=== PATIENT | male | born 1975 ===

== ENCOUNTER 2022-05-12 18:39 | Inpatient (IN) ==
[2022-05-12] MEDS ORDERED: *HR* Midazolam HCl 5 MG/5 ML VIAL IVP ONE ×2 (21:46)
[2022-05-12] MEDS ORDERED: Naloxone 0.4 MG/ML INJ IVP PRN (21:48)
[2022-05-12] MEDS ORDERED: Artificial Tears SOLN 15 ML BOTTLE BOTH EYES PRN (21:56)
[2022-05-12 22:09] LABS: ABG Base Excess -7 mEq/L (-2 to 3); ABG HCO3 20 mEq/L (21-27); ABG Oxygen Saturation 100 % (95-98); ABG PCO2 42 mmHg (35-45); ABG PH 7.28 pH Units (7.32-7.45); ABG PO2 198 mmHg (85-104); ABG TCO2 21 mEq/L (20-26); Blood Gas VT 500 cc
[2022-05-12] MEDS: Dexmedetomidine HCl 400 MCG/100 ML MLS IVC SCH (22:20)
[2022-05-12 22:21] LABS: Red Cell Distribution Width 17.6 % (11.5-14.5)
[2022-05-12] MEDS: FentaNYL (PF) 1,000 MCG/100 ML IV.SOLN IVC SCH (22:21)
[2022-05-12] MEDS: Artificial Tears SOLN 15 ML BOTTLE BOTH EYES SCH (22:21)
[2022-05-12 22:23] LABS: Basophils % 0.3 %; Eosinophils % 0.5 %; Hemoglobin 9.9 g/dL (12.9-16.9); Immature Granulocytes % 0.3 % (0-4); Immature Platelets 5.3 % (1.1-6.1); Lymphocytes # 1.1 K/mcL (0.6-4.6); Lymphocytes % 19.1 %; Mean Corpuscular HGB Conc 31.9 g/dL (31.6-35.5); Mean Corpuscular Volume 109.5 fL (83.0-100.0); Mean Platelet Volume 10.5 fL (9.4-12.4); Monocytes # 0.8 K/mcL (0.0-1.3); Monocytes % 14.4 %; Neutrophils # 3.8 K/mcL (1.6-8.9); Red Blood Count 2.83 M/mcL (4.19-5.50); Segmented Neutrophils % 65.4 %; White Blood Count 5.8 K/mcL (4.3-11.1)
[2022-05-12 22:29] LABS: INR 1.8; Prothrombin Time 19.5 Seconds (9.4-12.1)
[2022-05-12 22:44] LABS: Platelet Count 27 K/mcL (140-400); Platelet Estimate Decreased (Normal)
[2022-05-12 22:46] LABS: Alanine Aminotransferase 29 Units/L (7-52); Albumin 2.4 g/dL (3.5-5.7); Albumin/Globulin Ratio 0.8 (1.1-2.2); Alkaline Phosphatase 181 Units/L (34-104); Aspartate Amino Transferase 62 Units/L (13-39); BUN/Creatinine Ratio 8 (6-26); Bilirubin,Direct 1.9 mg/dL (0.0-0.2); Bilirubin,Total 3.9 mg/dL (0.3-1.0); Blood Urea Nitrogen 12 mg/dL (6-20); Calcium 6.9 mg/dL (8.6-10.3); Carbon Dioxide 19 mEq/L (23-29); Chloride 118 mEq/L (98-107); Globulin 2.9 g/dL (2.4-3.5); Glucose 134 mg/dL (70-105); Lactate Dehydrogenase 445 Units/L (140-271); Osmolality,Calculated 308 (280-300); Potassium 3.5 mEq/L (3.5-5.1); Sodium 148 mEq/L (136-145); Total Protein 5.3 g/dL (6.4-8.9); eGFR For African Americans 56 (> 60); eGFR For Non-African Americans 46 (> 60)
[2022-05-12 22:49] LABS: C-Reactive Protein < 5 mg/L (Less than 10)
[2022-05-12] MEDS: Thiamine (B-1) 200 MG in 0.9 % Sodium Chloride 50 ML IVPB SCH (23:07)
[2022-05-12 23:11] LABS: Adenovirus Not Detected (Not Detect); Bordetella Pertussis Not Detected (Not Detect); Chlamydophila pneumoniae Not Detected (Not Detect); Coronavirus 229E Not Detected (Not Detect); Coronavirus HKU1 Not Detected (Not Detect); Coronavirus NL63 Not Detected (Not Detect); Coronavirus OC43 Not Detected (Not Detect); Human Metapneumovirus Not Detected (Not Detect); Human Rhinovirus/Enterovirus Not Detected (Not Detect); Influenza A Subtype 2009 H1 Not Detected (Not Detect); Influenza B Not Detected (Not Detect); Mycoplasma pneumoniae Not Detected (Not Detect); Parainfluenza Virus 1 Not Detected (Not Detect); Parainfluenza Virus 2 Not Detected (Not Detect); Parainfluenza Virus 3 Not Detected (Not Detect); Parainfluenza Virus 4 Not Detected (Not Detect); Respiratory Syncytial Virus Not Detected (Not Detect)
[2022-05-12 23:12] LABS: SARS-CoV-2 DETECTED (Not Detect)
[2022-05-12] MEDS ORDERED: Perflutren Lipid Microsphere 1.3 ML in 0.9 % Sodium Chloride 8.7 ML IVP PRN (23:23)
[2022-05-12] MEDS: Piperacillin/Tazobactam 3.375 GM in 0.9 % Sodium Chloride Mini Bag 100 ML IVPB SCH (23:41)
[2022-05-12 23:51] LABS: ABG Base Excess -8 mEq/L (-2 to 3); ABG HCO3 19 mEq/L (21-27); ABG Oxygen Saturation 99 % (95-98); ABG PCO2 43 mmHg (35-45); ABG PH 7.26 pH Units (7.32-7.45); ABG PO2 172 mmHg (85-104); ABG TCO2 20 mEq/L (20-26); Blood Gas VT 450 cc
[2022-05-12] MEDS ORDERED: 0.9 % Sodium Chloride 250 ML ONE (23:59)
[2022-05-12] MEDS ORDERED: *HR* Norepinephrine 4 MG/4 ML VIAL IVC ONE (23:59)
[2022-05-13] MEDS: Norepinephrine 4 MG/254 ML IV.SOLN IVC SCH ×6 (00:22→17:59)
[2022-05-13] MEDS: Dexamethasone Sodium Phos/PF 10 MG/ML VIAL IVP SCH ×2 (01:07→07:44)
[2022-05-13] MEDS: Midazolam HCl 50 MG/50 ML IV.SOLN IVC SCH ×2 (01:09→22:43)
[2022-05-13] MEDS: Artificial Tears SOLN 15 ML BOTTLE BOTH EYES SCH ×6 (03:23→23:42)
[2022-05-13] MEDS: Dexmedetomidine HCl 400 MCG/100 ML MLS IVC SCH ×5 (03:29→23:34)
[2022-05-13] MEDS: FentaNYL (PF) 1,000 MCG/100 ML IV.SOLN IVC SCH ×2 (03:29→20:38)
[2022-05-13 04:05] LABS: ABG Base Excess -7 mEq/L (-2 to 3); ABG HCO3 20 mEq/L (21-27); ABG Oxygen Saturation 99 % (95-98); ABG PCO2 45 mmHg (35-45); ABG PH 7.26 pH Units (7.32-7.45); ABG PO2 139 mmHg (85-104); ABG TCO2 21 mEq/L (20-26); Blood Gas VT 450 cc
[2022-05-13 04:30] LABS: Hematocrit 32.2 % (37.5-50.1); Hemoglobin 10.4 g/dL (12.9-16.9); Immature Platelets 7.2 % (1.1-6.1); Mean Corpuscular HGB Conc 32.3 g/dL (31.6-35.5); Mean Corpuscular Hemoglobin 35.4 pg (28.0-33.3); Mean Corpuscular Volume 109.5 fL (83.0-100.0); Mean Platelet Volume 12.8 fL (9.4-12.4); Red Blood Count 2.94 M/mcL (4.19-5.50); Red Cell Distribution Width 17.3 % (11.5-14.5); White Blood Count 7.5 K/mcL (4.3-11.1)
[2022-05-13 04:49] LABS: Alanine Aminotransferase 33 Units/L (7-52); Albumin 2.6 g/dL (3.5-5.7); Albumin/Globulin Ratio 0.8 (1.1-2.2); Alkaline Phosphatase 187 Units/L (34-104); Amylase 94 Units/L (29-103); Aspartate Amino Transferase 69 Units/L (13-39); BUN/Creatinine Ratio 11 (6-26); Bilirubin,Total 4.9 mg/dL (0.3-1.0); Blood Urea Nitrogen 14 mg/dL (6-20); Calcium 7.8 mg/dL (8.6-10.3); Carbon Dioxide 18 mEq/L (23-29); Chloride 116 mEq/L (98-107); Globulin 3.4 g/dL (2.4-3.5); Glucose 142 mg/dL (70-105); Lipase 43 Units/L (11-82); Osmolality,Calculated 309 (280-300); Potassium 3.7 mEq/L (3.5-5.1); Sodium 148 mEq/L (136-145); eGFR For African Americans > 60 (> 60); eGFR For Non-African Americans > 60 (> 60)
[2022-05-13] MEDS: Thiamine (B-1) 200 MG in 0.9 % Sodium Chloride 50 ML IVPB SCH (05:09)
[2022-05-13] MEDS: Lactulose Oral Soln 20 GM/30 ML UDC PO SCH ×2 (07:43→20:47)
[2022-05-13] MEDS: Chlorhexidine Rinse 15 ML MOUTHWASH MM SCH ×2 (07:43→20:39)
[2022-05-13] MEDS: Pantoprazole 40 MG VIAL IVP SCH (07:43)
[2022-05-13] MEDS: Piperacillin/Tazobactam 3.375 GM in 0.9 % Sodium Chloride Mini Bag 100 ML IVPB SCH ×3 (07:44→23:31)
[2022-05-13 08:05] LABS: Phosphorous 6.1 mg/dL (2.7-4.5)
[2022-05-13 09:40] LABS: Hematocrit 29.5 % (37.5-50.1)
[2022-05-13 09:42] LABS: Hemoglobin 9.6 g/dL (12.9-16.9); Mean Corpuscular HGB Conc 32.5 g/dL (31.6-35.5); Mean Corpuscular Hemoglobin 35.2 pg (28.0-33.3); Mean Corpuscular Volume 108.1 fL (83.0-100.0); Mean Platelet Volume 10.9 fL (9.4-12.4); Red Blood Count 2.73 M/mcL (4.19-5.50); Red Cell Distribution Width 17.3 % (11.5-14.5); White Blood Count 8.4 K/mcL (4.3-11.1)
[2022-05-13 09:44] LABS: VBG Ionized Calcium 0.97 mmol/L (1.15-1.35)
[2022-05-13 09:47] LABS: Platelet Count 27 K/mcL (140-400)
[2022-05-13] MEDS: Calcium Gluconate 1gm/50mL 1 GM/50 ML BAG IVPB PRN ×2 (09:55→15:55)
[2022-05-13 09:56] LABS: BUN/Creatinine Ratio 12 (6-26); Blood Urea Nitrogen 16 mg/dL (6-20); Calcium 7.4 mg/dL (8.6-10.3); Carbon Dioxide 20 mEq/L (23-29); Chloride 115 mEq/L (98-107); Glucose 137 mg/dL (70-105); Osmolality,Calculated 307 (280-300); Potassium 4.1 mEq/L (3.5-5.1); Sodium 147 mEq/L (136-145); eGFR For African Americans > 60 (> 60); eGFR For Non-African Americans 59 (> 60)
[2022-05-13 13:40] LABS: Basophils # 0.2 K/mcL (0.0-0.2); Lymphocytes # 0.3 K/mcL (0.6-4.6); Monocytes # 0.2 K/mcL (0.0-1.3); Neutrophils # 7.7 K/mcL (1.6-8.9); Platelet Estimate Marked Decrease (Normal)
[2022-05-13 13:41] LABS: Anisocytosis 1+ (Not Present); Poikilocytosis 1+ (Not Present); Polychromasia 1+ (Not Present)
[2022-05-13 13:41] LABS: Hematocrit 30.1 % (37.5-50.1); Hemoglobin 9.7 g/dL (12.9-16.9); Immature Platelets 6.4 % (1.1-6.1); Mean Corpuscular HGB Conc 32.2 g/dL (31.6-35.5); Mean Corpuscular Hemoglobin 34.6 pg (28.0-33.3); Mean Corpuscular Volume 107.5 fL (83.0-100.0); Mean Platelet Volume 12.1 fL (9.4-12.4); Red Cell Distribution Width 17.6 % (11.5-14.5); White Blood Count 8.2 K/mcL (4.3-11.1)
[2022-05-13 13:44] LABS: Platelet Count 27 K/mcL (140-400)
[2022-05-13] MEDS: Acetaminophen 325 MG TABLET PO PRN ×2 (15:39→22:17)
[2022-05-13 15:40] LABS: Basophils # 0.2 K/mcL (0.0-0.2); Lymphocytes # 0.2 K/mcL (0.6-4.6); Neutrophils # 7.9 K/mcL (1.6-8.9)
[2022-05-13 15:41] LABS: Anisocytosis 1+ (Not Present); Platelet Estimate Marked Decrease (Normal); Polychromasia 1+ (Not Present)
[2022-05-13 15:48] LABS: VBG Ionized Calcium 1.01 mmol/L (1.15-1.35)
[2022-05-13 16:01] LABS: BUN/Creatinine Ratio 13 (6-26); Blood Urea Nitrogen 19 mg/dL (6-20); Calcium 7.4 mg/dL (8.6-10.3); Carbon Dioxide 19 mEq/L (23-29); Chloride 116 mEq/L (98-107); Glucose 159 mg/dL (70-105); Magnesium 1.5 mg/dL (1.6-2.6); Osmolality,Calculated 310 (280-300); Potassium 4.1 mEq/L (3.5-5.1); Sodium 147 mEq/L (136-145); eGFR For African Americans > 60 (> 60); eGFR For Non-African Americans 53 (> 60)
[2022-05-13 16:03] LABS: Hemoglobin 9.7 g/dL (12.9-16.9); Red Blood Count 2.77 M/mcL (4.19-5.50)
[2022-05-13 16:05] LABS: Hematocrit 30.2 % (37.5-50.1); Immature Platelets 5.9 % (1.1-6.1); Mean Corpuscular HGB Conc 32.1 g/dL (31.6-35.5); Red Cell Distribution Width 17.7 % (11.5-14.5); White Blood Count 7.2 K/mcL (4.3-11.1)
[2022-05-13 16:09] LABS: Platelet Count 21 K/mcL (140-400)
[2022-05-13 17:00] LABS: Lymphocytes # 0.6 K/mcL (0.6-4.6); Monocytes # 0.1 K/mcL (0.0-1.3); Neutrophils # 6.5 K/mcL (1.6-8.9)
[2022-05-13 17:01] LABS: Platelet Estimate Decreased (Normal)
[2022-05-13] MEDS ORDERED: *HR* Midazolam HCl 5 MG/5 ML VIAL IVP ONE (20:53)
[2022-05-14 00:16] LABS: BUN/Creatinine Ratio 20 (6-26); Blood Urea Nitrogen 25 mg/dL (6-20); Calcium 7.4 mg/dL (8.6-10.3); Carbon Dioxide 20 mEq/L (23-29); Chloride 114 mEq/L (98-107); Glucose 241 mg/dL (70-105); Osmolality,Calculated 310 (280-300); Potassium 4.2 mEq/L (3.5-5.1); Sodium 144 mEq/L (136-145); eGFR For African Americans > 60 (> 60); eGFR For Non-African Americans > 60 (> 60)
[2022-05-14] MEDS: Norepinephrine 4 MG/254 ML IV.SOLN IVC SCH ×5 (00:28→21:01)
[2022-05-14] MEDS: FentaNYL (PF) 1,000 MCG/100 ML IV.SOLN IVC SCH ×5 (02:40→21:00)
[2022-05-14] MEDS: Dexmedetomidine HCl 400 MCG/100 ML MLS IVC SCH ×6 (03:00→22:13)
[2022-05-14 04:15] LABS: ABG Base Excess -3 mEq/L (-2 to 3); ABG HCO3 25 mEq/L (21-27); ABG Oxygen Saturation 99 % (95-98); ABG PCO2 52 mmHg (35-45); ABG PH 7.28 pH Units (7.32-7.45); ABG PO2 170 mmHg (85-104); ABG TCO2 26 mEq/L (20-26); Blood Gas VT 450 cc
[2022-05-14] MEDS: Artificial Tears SOLN 15 ML BOTTLE BOTH EYES SCH ×5 (06:55→20:03)
[2022-05-14] MEDS: Lactulose Oral Soln 20 GM/30 ML UDC PO SCH ×3 (07:48→17:02)
[2022-05-14] MEDS: Chlorhexidine Rinse 15 ML MOUTHWASH MM SCH ×2 (07:49→20:35)
[2022-05-14] MEDS: Dexamethasone Sodium Phos/PF 10 MG/ML VIAL IVP SCH (07:50)
[2022-05-14] MEDS: Pantoprazole 40 MG VIAL IVP SCH (07:50)
[2022-05-14] MEDS: Piperacillin/Tazobactam 3.375 GM in 0.9 % Sodium Chloride Mini Bag 100 ML IVPB SCH ×2 (07:50→16:11)
[2022-05-14] MEDS ORDERED: *HR* Midazolam HCl 5 MG/5 ML VIAL IVP ONE ×2 (08:02→08:04)
[2022-05-14 08:37] LABS: Hemoglobin 10.3 g/dL (12.9-16.9); Nucleated Red Blood Cells 0.1 /100 WBC (0)
[2022-05-14 08:38] LABS: Hematocrit 33.9 % (37.5-50.1); Immature Platelets 13.4 % (1.1-6.1); Mean Corpuscular HGB Conc 30.4 g/dL (31.6-35.5); Mean Corpuscular Hemoglobin 35.5 pg (28.0-33.3); Mean Corpuscular Volume 116.9 fL (83.0-100.0); Red Cell Distribution Width 17.1 % (11.5-14.5); White Blood Count 13.9 K/mcL (4.3-11.1)
[2022-05-14 08:47] LABS: Platelet Count 25 K/mcL (140-400)
[2022-05-14 08:55] LABS: BUN/Creatinine Ratio 23 (6-26); Blood Urea Nitrogen 32 mg/dL (6-20); Calcium 7.3 mg/dL (8.6-10.3); Carbon Dioxide 19 mEq/L (23-29); Chloride 111 mEq/L (98-107); Glucose 289 mg/dL (70-105); Magnesium 1.9 mg/dL (1.6-2.6); Osmolality,Calculated 313 (280-300); Potassium 3.8 mEq/L (3.5-5.1); Sodium 143 mEq/L (136-145); eGFR For African Americans > 60 (> 60); eGFR For Non-African Americans 54 (> 60)
[2022-05-14] MEDS: Thiamine (B-1) 200 MG in 0.9 % Sodium Chloride 50 ML IVPB SCH (09:20)
[2022-05-14 09:39] LABS: Lymphocytes # 2.9 K/mcL (0.6-4.6); Monocytes # 0.3 K/mcL (0.0-1.3); Neutrophils # 10.4 K/mcL (1.6-8.9); Toxic Granulation Present (Not Present)
[2022-05-14 09:41] LABS: Anisocytosis 1+ (Not Present); Platelet Estimate Marked Decrease (Normal)
[2022-05-14] MEDS ORDERED: *HR* Dextrose 50 % in Water (Syg) 50 ML SYRINGE IVP PRN (11:00)
[2022-05-14] MEDS ORDERED: Dextrose Gel 15 GM/37.5 ML TUBE PO PRN ×2 (11:00)
[2022-05-14] MEDS ORDERED: D5% in Water 1,000 ML IVC PRN (11:00)
[2022-05-14] MEDS: Insulin LISPRO 300 UNITS/3 ML VIAL SUBQ SCH ×3 (12:06→20:35)
[2022-05-14 12:26] LABS: Prothrombin Time 22.1 Seconds (9.4-12.1)
[2022-05-14] MEDS ORDERED: Ringers Solution, Lactated 500 ML IVC ONE (16:08)
[2022-05-14] MEDS ORDERED: Ringers Solution, Lactated 500 ML ONE (16:13)
[2022-05-14] MEDS: Acetaminophen 325 MG TABLET PO PRN (16:14)
[2022-05-14] MEDS: Ringers Solution, Lactated 1,000 ML IVC SCH (17:01)
[2022-05-14] MEDS: Midazolam HCl 50 MG/50 ML IV.SOLN IVC SCH (23:41)
[2022-05-15] MEDS: Piperacillin/Tazobactam 3.375 GM in 0.9 % Sodium Chloride Mini Bag 100 ML IVPB SCH ×3 (00:17→16:04)
[2022-05-15] MEDS: Ringers Solution, Lactated 1,000 ML IVC SCH ×2 (00:19→09:24)
[2022-05-15] MEDS: Insulin LISPRO 300 UNITS/3 ML VIAL SUBQ SCH ×6 (00:21→20:51)
[2022-05-15] MEDS: Lactulose Oral Soln 20 GM/30 ML UDC PO SCH ×4 (00:29→17:58)
[2022-05-15] MEDS: Artificial Tears SOLN 15 ML BOTTLE BOTH EYES SCH ×6 (00:30→20:21)
[2022-05-15] MEDS: Norepinephrine 4 MG/254 ML IV.SOLN IVC SCH ×3 (02:06→20:51)
[2022-05-15] MEDS: FentaNYL (PF) 1,000 MCG/100 ML IV.SOLN IVC SCH ×5 (02:07→21:30)
[2022-05-15] MEDS: Dexmedetomidine HCl 400 MCG/100 ML MLS IVC SCH ×6 (02:25→20:22)
[2022-05-15 04:30] LABS: ABG Base Excess -2 mEq/L (-2 to 3); ABG HCO3 24 mEq/L (21-27); ABG Oxygen Saturation 94 % (95-98); ABG PCO2 45 mmHg (35-45); ABG PH 7.32 pH Units (7.32-7.45); ABG PO2 74 mmHg (85-104); ABG TCO2 25 mEq/L (20-26); Blood Gas VT 450 cc
[2022-05-15 05:26] LABS: Red Blood Count 2.61 M/mcL (4.19-5.50); Red Cell Distribution Width 17.1 % (11.5-14.5)
[2022-05-15 05:28] LABS: Hematocrit 29.5 % (37.5-50.1); Hemoglobin 9.2 g/dL (12.9-16.9); Immature Platelets 10.3 % (1.1-6.1); Mean Corpuscular HGB Conc 31.2 g/dL (31.6-35.5); Mean Corpuscular Hemoglobin 35.2 pg (28.0-33.3); Mean Platelet Volume 10.7 fL (9.4-12.4); Nucleated Red Blood Cells 0.3 /100 WBC (0); White Blood Count 14.4 K/mcL (4.3-11.1)
[2022-05-15 05:31] LABS: Platelet Count 24 K/mcL (140-400)
[2022-05-15 06:26] LABS: Lymphocytes # 5.2 K/mcL (0.6-4.6); Monocytes # 0.3 K/mcL (0.0-1.3); Neutrophils # 8.9 K/mcL (1.6-8.9); Platelet Estimate Decreased (Normal)
[2022-05-15 06:46] LABS: BUN/Creatinine Ratio 30 (6-26); Blood Urea Nitrogen 40 mg/dL (6-20); Calcium 6.4 mg/dL (8.6-10.3); Carbon Dioxide 21 mEq/L (23-29); Chloride 106 mEq/L (98-107); Glucose 452 mg/dL (70-105); Osmolality,Calculated 303 (280-300); Potassium 3.8 mEq/L (3.5-5.1); Sodium 132 mEq/L (136-145); eGFR For African Americans > 60 (> 60); eGFR For Non-African Americans 57 (> 60)
[2022-05-15] MEDS ORDERED: *HR* Midazolam HCl 5 MG/5 ML VIAL IVP ONE ×3 (08:24→23:57)
[2022-05-15] MEDS: Dexamethasone Sodium Phos/PF 10 MG/ML VIAL IVP SCH (08:57)
[2022-05-15] MEDS: Chlorhexidine Rinse 15 ML MOUTHWASH MM SCH ×2 (08:57→20:22)
[2022-05-15] MEDS: Pantoprazole 40 MG VIAL IVP SCH (08:58)
[2022-05-15] MEDS: QUEtiapine Fumarate 25 MG TABLET PO SCH ×2 (09:01→20:22)
[2022-05-15] MEDS ORDERED: Calcium Gluconate 1gm/50mL 1 GM/50 ML BAG IVPB ONE (11:34)
[2022-05-15 12:57] LABS: INR 2.3
[2022-05-15 14:23] LABS: VBG Ionized Calcium 1.17 mmol/L (1.15-1.35)
[2022-05-15 14:29] LABS: Alanine Aminotransferase 44 Units/L (7-52); Albumin 2.2 g/dL (3.5-5.7); Albumin/Globulin Ratio 0.7 (1.1-2.2); Alkaline Phosphatase 87 Units/L (34-104); Aspartate Amino Transferase 141 Units/L (13-39); BUN/Creatinine Ratio 32 (6-26); Bilirubin,Total 6.3 mg/dL (0.3-1.0); Blood Urea Nitrogen 36 mg/dL (6-20); Calcium 7.3 mg/dL (8.6-10.3); Carbon Dioxide 26 mEq/L (23-29); Chloride 113 mEq/L (98-107); Glucose 195 mg/dL (70-105); Osmolality,Calculated 304 (280-300); Potassium 4.7 mEq/L (3.5-5.1); Sodium 140 mEq/L (136-145); Total Protein 5.2 g/dL (6.4-8.9); eGFR For African Americans > 60 (> 60); eGFR For Non-African Americans > 60 (> 60)
[2022-05-15 16:03] LABS: Magnesium 1.8 mg/dL (1.6-2.6)
[2022-05-15] MEDS: 0.9 % Sodium Chloride 1,000 ML IVC SCH (16:05)
[2022-05-15] MEDS ORDERED: *HR* Midazolam HCl 2 MG/2 ML VIAL IVP ONE (23:57)
[2022-05-16] MEDS: Insulin LISPRO 300 UNITS/3 ML VIAL SUBQ SCH ×6 (00:14→20:56)
[2022-05-16] MEDS: Lactulose Oral Soln 20 GM/30 ML UDC PO SCH ×4 (00:14→14:32)
[2022-05-16] MEDS: Artificial Tears SOLN 15 ML BOTTLE BOTH EYES SCH ×6 (00:14→20:55)
[2022-05-16] MEDS: 0.9 % Sodium Chloride 1,000 ML IVC SCH ×2 (00:15→09:05)
[2022-05-16] MEDS: Piperacillin/Tazobactam 3.375 GM in 0.9 % Sodium Chloride Mini Bag 100 ML IVPB SCH ×3 (00:16→16:28)
[2022-05-16] MEDS: Dexmedetomidine HCl 400 MCG/100 ML MLS IVC SCH ×4 (00:16→23:20)
[2022-05-16] MEDS: FentaNYL (PF) 1,000 MCG/100 ML IV.SOLN IVC SCH (02:11)
[2022-05-16 03:51] LABS: Mean Corpuscular HGB Conc 31.6 g/dL (31.6-35.5)
[2022-05-16 03:53] LABS: Hematocrit 27.2 % (37.5-50.1); Hemoglobin 8.6 g/dL (12.9-16.9); Immature Platelets 13.4 % (1.1-6.1); Mean Corpuscular Hemoglobin 34.5 pg (28.0-33.3); Mean Corpuscular Volume 109.2 fL (83.0-100.0); Mean Platelet Volume 12.8 fL (9.4-12.4); Nucleated Red Blood Cells 0.4 /100 WBC (0); Red Blood Count 2.49 M/mcL (4.19-5.50); Red Cell Distribution Width 16.4 % (11.5-14.5); White Blood Count 6.8 K/mcL (4.3-11.1)
[2022-05-16 03:59] LABS: INR 2.6; Prothrombin Time 28.9 Seconds (9.4-12.1)
[2022-05-16 04:03] LABS: Platelet Count 19 K/mcL (140-400)
[2022-05-16 04:11] LABS: Alanine Aminotransferase 40 Units/L (7-52); Albumin/Globulin Ratio 0.7 (1.1-2.2); Alkaline Phosphatase 76 Units/L (34-104); Aspartate Amino Transferase 103 Units/L (13-39); BUN/Creatinine Ratio 33 (6-26); Bilirubin,Total 5.8 mg/dL (0.3-1.0); Blood Urea Nitrogen 40 mg/dL (6-20); Carbon Dioxide 24 mEq/L (23-29); Chloride 113 mEq/L (98-107); Globulin 2.8 g/dL (2.4-3.5); Glucose 259 mg/dL (70-105); Osmolality,Calculated 307 (280-300); Sodium 139 mEq/L (136-145); Total Protein 4.8 g/dL (6.4-8.9); eGFR For African Americans > 60 (> 60); eGFR For Non-African Americans > 60 (> 60)
[2022-05-16 04:17] LABS: Lymphocytes # 0.5 K/mcL (0.6-4.6); Monocytes # 0.1 K/mcL (0.0-1.3); Neutrophils # 6.1 K/mcL (1.6-8.9); Platelet Estimate Marked Decrease (Normal)
[2022-05-16 04:18] LABS: Hypochromasia Present (Not Present)
[2022-05-16 04:44] LABS: ABG Base Excess -3 mEq/L (-2 to 3); ABG HCO3 21 mEq/L (21-27); ABG Oxygen Saturation 97 % (95-98); ABG PCO2 33 mmHg (35-45); ABG PH 7.42 pH Units (7.32-7.45); ABG PO2 83 mmHg (85-104); ABG TCO2 22 mEq/L (20-26); Blood Gas VT 450 cc
[2022-05-16] MEDS: Chlorhexidine Rinse 15 ML MOUTHWASH MM SCH ×2 (07:19→20:34)
[2022-05-16] MEDS: Pantoprazole 40 MG VIAL IVP SCH (07:20)
[2022-05-16] MEDS: Dexamethasone Sodium Phos/PF 10 MG/ML VIAL IVP SCH (07:21)
[2022-05-16] MEDS ORDERED: *HR* Midazolam HCl 5 MG/5 ML VIAL IVP ONE ×2 (10:10→11:00)
[2022-05-16] MEDS ORDERED: *HR* LORazepam 2 MG/ML VIAL IVP PRN (10:23)
[2022-05-16] MEDS: Insulin DETEMIR 100 UNIT/ML X5UNITS SUBQ SCH (12:52)
[2022-05-16] MEDS: *HR* LORazepam 2 MG/ML VIAL IVP PRN ×2 (13:00→21:00)
[2022-05-16] MEDS: Norepinephrine 4 MG/254 ML IV.SOLN IVC SCH (20:01)
[2022-05-16] MEDS: QUEtiapine Fumarate 25 MG TABLET PO SCH (20:23)
[2022-05-17] MEDS: Artificial Tears SOLN 15 ML BOTTLE BOTH EYES SCH ×6 (00:12→20:10)
[2022-05-17] MEDS: Insulin LISPRO 300 UNITS/3 ML VIAL SUBQ SCH ×6 (00:12→20:13)
[2022-05-17] MEDS: Piperacillin/Tazobactam 3.375 GM in 0.9 % Sodium Chloride Mini Bag 100 ML IVPB SCH ×3 (00:13→18:07)
[2022-05-17] MEDS: Lactulose Oral Soln 20 GM/30 ML UDC PO SCH ×4 (00:13→18:09)
[2022-05-17 04:27] LABS: Alanine Aminotransferase 40 Units/L (7-52); Albumin 2.1 g/dL (3.5-5.7); Albumin/Globulin Ratio 0.8 (1.1-2.2); Alkaline Phosphatase 79 Units/L (34-104); Aspartate Amino Transferase 71 Units/L (13-39); BUN/Creatinine Ratio 37 (6-26); Bilirubin,Total 5.2 mg/dL (0.3-1.0); Blood Urea Nitrogen 37 mg/dL (6-20); Calcium 7.4 mg/dL (8.6-10.3); Carbon Dioxide 24 mEq/L (23-29); Chloride 113 mEq/L (98-107); Globulin 2.7 g/dL (2.4-3.5); Glucose 323 mg/dL (70-105); Magnesium 1.9 mg/dL (1.6-2.6); Osmolality,Calculated 307 (280-300); Potassium 4.2 mEq/L (3.5-5.1); Sodium 138 mEq/L (136-145); Total Protein 4.8 g/dL (6.4-8.9); eGFR For African Americans > 60 (> 60); eGFR For Non-African Americans > 60 (> 60)
[2022-05-17 04:32] LABS: Basophils % 0.3 %; Lymphocytes % 5.9 %; Mean Corpuscular HGB Conc 32.6 g/dL (31.6-35.5); Monocytes % 5.5 %
[2022-05-17 04:34] LABS: Hematocrit 27.6 % (37.5-50.1); Immature Platelets 14.6 % (1.1-6.1); Lymphocytes # 0.7 K/mcL (0.6-4.6); Mean Corpuscular Hemoglobin 34.9 pg (28.0-33.3); Monocytes # 0.7 K/mcL (0.0-1.3); Nucleated Red Blood Cells 0.2 /100 WBC (0); Red Blood Count 2.58 M/mcL (4.19-5.50); Red Cell Distribution Width 16.2 % (11.5-14.5); Segmented Neutrophils % 87.3 %; White Blood Count 12.1 K/mcL (4.3-11.1)
[2022-05-17 04:36] LABS: Neutrophils # 10.6 K/mcL (1.6-8.9)
[2022-05-17 04:38] LABS: Platelet Count 25 K/mcL (140-400)
[2022-05-17] MEDS: Dexmedetomidine HCl 400 MCG/100 ML MLS IVC SCH ×4 (04:40→23:23)
[2022-05-17 04:41] LABS: INR 2.3; Prothrombin Time 25.5 Seconds (9.4-12.1)
[2022-05-17] MEDS: *HR* LORazepam 2 MG/ML VIAL IVP PRN ×4 (05:30→22:09)
[2022-05-17 05:32] LABS: Hypochromasia Present (Not Present); Platelet Estimate Marked Decrease (Normal)
[2022-05-17] MEDS: Dexamethasone Sodium Phos/PF 10 MG/ML VIAL IVP SCH (08:33)
[2022-05-17] MEDS: Pantoprazole 40 MG VIAL IVP SCH (08:33)
[2022-05-17] MEDS: Chlorhexidine Rinse 15 ML MOUTHWASH MM SCH ×2 (08:33→20:12)
[2022-05-17] MEDS: Albumin 25% 25gram/100mL 25 GM/100 ML IV.SOLN IVPB SCH ×2 (08:34→18:08)
[2022-05-17] MEDS: Insulin DETEMIR 100 UNIT/ML X5UNITS SUBQ SCH (08:38)
[2022-05-17 09:33] LABS: VBG Ionized Calcium 1.16 mmol/L (1.15-1.35)
[2022-05-17] MEDS: QUEtiapine Fumarate 25 MG TABLET PO SCH (20:11)
[2022-05-18] MEDS: Artificial Tears SOLN 15 ML BOTTLE BOTH EYES SCH ×7 (00:34→23:40)
[2022-05-18] MEDS: Lactulose Oral Soln 20 GM/30 ML UDC PO SCH ×5 (00:34→23:41)
[2022-05-18] MEDS: Insulin LISPRO 300 UNITS/3 ML VIAL SUBQ SCH ×6 (00:35→20:13)
[2022-05-18] MEDS: Albumin 25% 25gram/100mL 25 GM/100 ML IV.SOLN IVPB SCH ×4 (00:42→23:40)
[2022-05-18] MEDS: Piperacillin/Tazobactam 3.375 GM in 0.9 % Sodium Chloride Mini Bag 100 ML IVPB SCH ×4 (00:42→23:41)
[2022-05-18 03:23] LABS: VBG Ionized Calcium 1.21 mmol/L (1.15-1.35)
[2022-05-18 03:33] LABS: Basophils % 0.2 %; Hemoglobin 8.4 g/dL (12.9-16.9); INR 2.7; Prothrombin Time 30.2 Seconds (9.4-12.1); Red Cell Distribution Width 16.2 % (11.5-14.5)
[2022-05-18 03:35] LABS: Hematocrit 26.1 % (37.5-50.1); Immature Granulocytes % 1.9 % (0-4); Immature Platelets 17.4 % (1.1-6.1); Lymphocytes # 0.5 K/mcL (0.6-4.6); Lymphocytes % 11.4 %; Mean Corpuscular HGB Conc 32.2 g/dL (31.6-35.5); Mean Corpuscular Hemoglobin 35.3 pg (28.0-33.3); Mean Corpuscular Volume 109.7 fL (83.0-100.0); Monocytes # 0.5 K/mcL (0.0-1.3); Monocytes % 12.4 %; Neutrophils # 3.2 K/mcL (1.6-8.9); Nucleated Red Blood Cells 0.5 /100 WBC (0); Red Blood Count 2.38 M/mcL (4.19-5.50); Segmented Neutrophils % 74.1 %; White Blood Count 4.3 K/mcL (4.3-11.1)
[2022-05-18 03:38] LABS: Platelet Count 17 K/mcL (140-400)
[2022-05-18 03:42] LABS: Alanine Aminotransferase 38 Units/L (7-52); Albumin 2.7 g/dL (3.5-5.7); Albumin/Globulin Ratio 1.1 (1.1-2.2); Alkaline Phosphatase 66 Units/L (34-104); Aspartate Amino Transferase 56 Units/L (13-39); BUN/Creatinine Ratio 41 (6-26); Bilirubin,Total 4.6 mg/dL (0.3-1.0); Blood Urea Nitrogen 31 mg/dL (6-20); Calcium 8.2 mg/dL (8.6-10.3); Carbon Dioxide 25 mEq/L (23-29); Chloride 116 mEq/L (98-107); Globulin 2.5 g/dL (2.4-3.5); Glucose 150 mg/dL (70-105); Magnesium 1.9 mg/dL (1.6-2.6); Osmolality,Calculated 311 (280-300); Phosphorous 1.5 mg/dL (2.7-4.5); Potassium 3.5 mEq/L (3.5-5.1); Sodium 146 mEq/L (136-145); Total Protein 5.2 g/dL (6.4-8.9); eGFR For African Americans > 60 (> 60); eGFR For Non-African Americans > 60 (> 60)
[2022-05-18 04:40] LABS: Lipase 18 Units/L (11-82)
[2022-05-18] MEDS ORDERED: Potassium Phosphate 44 MEQ in 0.9 % Sodium Chloride 250 ML IVPB ONE (04:54)
[2022-05-18] MEDS: Chlorhexidine Rinse 15 ML MOUTHWASH MM SCH ×2 (07:52→19:55)
[2022-05-18] MEDS: Pantoprazole 40 MG VIAL IVP SCH (07:53)
[2022-05-18] MEDS: Dexamethasone Sodium Phos/PF 10 MG/ML VIAL IVP SCH (07:53)
[2022-05-18] MEDS: *HR* LORazepam 2 MG/ML VIAL IVP PRN ×2 (08:27→14:56)
[2022-05-18] MEDS: Insulin DETEMIR 100 UNIT/ML X5UNITS SUBQ SCH (08:41)
[2022-05-18] MEDS: D5% in 0.9% NACL w KCl 20 MEQ/1,000 ML MLS IVC SCH (13:38)
[2022-05-18] MEDS: Dexmedetomidine HCl 400 MCG/100 ML MLS IVC SCH ×2 (16:48→22:30)
[2022-05-18] MEDS: FentaNYL (PF) 1,000 MCG/100 ML IV.SOLN IVC SCH (19:39)
[2022-05-18] MEDS: QUEtiapine Fumarate 25 MG TABLET PO SCH ×2 (19:55→20:15)
[2022-05-19] MEDS: Insulin LISPRO 300 UNITS/3 ML VIAL SUBQ SCH ×6 (00:23→19:16)
[2022-05-19] MEDS: Norepinephrine 4 MG/254 ML IV.SOLN IVC SCH ×2 (00:25→15:58)
[2022-05-19] MEDS: *HR* LORazepam 2 MG/ML VIAL IVP PRN ×3 (01:58→22:00)
[2022-05-19] MEDS: D5% in 0.9% NACL w KCl 20 MEQ/1,000 ML MLS IVC SCH ×3 (03:08→15:55)
[2022-05-19 03:17] LABS: VBG Ionized Calcium 1.23 mmol/L (1.15-1.35)
[2022-05-19 03:26] LABS: Basophils % 0.3 %; Mean Corpuscular Volume 109.3 fL (83.0-100.0); Red Cell Distribution Width 17.2 % (11.5-14.5)
[2022-05-19 03:28] LABS: Hematocrit 22.4 % (37.5-50.1); Hemoglobin 7.2 g/dL (12.9-16.9); Immature Granulocytes % 1.7 % (0-4); Immature Platelets 16.7 % (1.1-6.1); Lymphocytes # 0.4 K/mcL (0.6-4.6); Mean Corpuscular HGB Conc 32.1 g/dL (31.6-35.5); Mean Corpuscular Hemoglobin 35.1 pg (28.0-33.3); Mean Platelet Volume 11.7 fL (9.4-12.4); Monocytes # 0.7 K/mcL (0.0-1.3); Monocytes % 18.1 %; Neutrophils # 2.4 K/mcL (1.6-8.9); Nucleated Red Blood Cells 1.4 /100 WBC (0); Red Blood Count 2.05 M/mcL (4.19-5.50); Segmented Neutrophils % 67.9 %; White Blood Count 3.6 K/mcL (4.3-11.1)
[2022-05-19 03:31] LABS: INR 2.7; Prothrombin Time 29.6 Seconds (9.4-12.1)
[2022-05-19 03:43] LABS: BUN/Creatinine Ratio 34 (6-26); Blood Urea Nitrogen 30 mg/dL (6-20); Calcium 8.4 mg/dL (8.6-10.3); Carbon Dioxide 24 mEq/L (23-29); Chloride 117 mEq/L (98-107); Glucose 201 mg/dL (70-105); Magnesium 1.8 mg/dL (1.6-2.6); Osmolality,Calculated 312 (280-300); Phosphorous 2.3 mg/dL (2.7-4.5); Potassium 3.8 mEq/L (3.5-5.1); Sodium 145 mEq/L (136-145); eGFR For African Americans > 60 (> 60); eGFR For Non-African Americans > 60 (> 60)
[2022-05-19 03:45] LABS: Platelet Count 19 K/mcL (140-400)
[2022-05-19 04:06] LABS: Anisocytosis 1+ (Not Present); Hypochromasia Present (Not Present); Platelet Estimate Marked Decrease (Normal)
[2022-05-19] MEDS: Artificial Tears SOLN 15 ML BOTTLE BOTH EYES SCH ×3 (05:20→12:09)
[2022-05-19] MEDS: Lactulose Oral Soln 20 GM/30 ML UDC PO SCH ×3 (05:21→17:14)
[2022-05-19] MEDS: Dexmedetomidine HCl 400 MCG/100 ML MLS IVC SCH ×4 (05:22→23:50)
[2022-05-19] MEDS: Pantoprazole 40 MG VIAL IVP SCH ×2 (07:44→18:09)
[2022-05-19] MEDS: Albumin 25% 25gram/100mL 25 GM/100 ML IV.SOLN IVPB SCH ×3 (07:45→23:36)
[2022-05-19] MEDS: Chlorhexidine Rinse 15 ML MOUTHWASH MM SCH ×2 (07:45→19:18)
[2022-05-19] MEDS: Piperacillin/Tazobactam 3.375 GM in 0.9 % Sodium Chloride Mini Bag 100 ML IVPB SCH ×3 (07:45→23:36)
[2022-05-19] MEDS: Insulin DETEMIR 100 UNIT/ML X5UNITS SUBQ SCH (07:47)
[2022-05-19] MEDS ORDERED: Dexamethasone Sodium Phos/PF 10 MG/ML VIAL IVP SCH (09:00)
[2022-05-19 11:41] LABS: Hematocrit 18.7 % (37.5-50.1)
[2022-05-19 11:48] LABS: Hemoglobin 5.7 g/dL (12.9-16.9)
[2022-05-19] MEDS ORDERED: 0.9 % Sodium Chloride 250 ML ONE (12:27)
[2022-05-19] MEDS: Dexamethasone Sodium Phos/PF 10 MG/ML VIAL IVP SCH (13:03)
[2022-05-19] MEDS: Lactulose 200 GM, Sodium Chloride IRRigation 700 ML RC SCH (13:52)
[2022-05-19 18:15] LABS: Hematocrit 24.8 % (37.5-50.1)
[2022-05-19 18:17] LABS: VBG Ionized Calcium 1.19 mmol/L (1.15-1.35)
[2022-05-19 18:36] LABS: BUN/Creatinine Ratio 32 (6-26); Blood Urea Nitrogen 25 mg/dL (6-20); Calcium 8.3 mg/dL (8.6-10.3); Carbon Dioxide 22 mEq/L (23-29); Chloride 118 mEq/L (98-107); Glucose 191 mg/dL (70-105); Magnesium 1.8 mg/dL (1.6-2.6); Osmolality,Calculated 312 (280-300); Phosphorous 3.5 mg/dL (2.7-4.5); Potassium 3.8 mEq/L (3.5-5.1); Sodium 146 mEq/L (136-145); eGFR For African Americans > 60 (> 60); eGFR For Non-African Americans > 60 (> 60)
[2022-05-19] MEDS: QUEtiapine Fumarate 25 MG TABLET PO SCH (19:16)
[2022-05-20] MEDS: Insulin LISPRO 300 UNITS/3 ML VIAL SUBQ SCH ×6 (01:58→23:11)
[2022-05-20] MEDS: Lactulose Oral Soln 20 GM/30 ML UDC PO SCH ×5 (01:58→22:56)
[2022-05-20 03:40] LABS: VBG Ionized Calcium 1.15 mmol/L (1.15-1.35)
[2022-05-20 03:42] LABS: Hemoglobin 7.6 g/dL (12.9-16.9)
[2022-05-20 03:44] LABS: Basophils % 0.3 %; Hematocrit 23.7 % (37.5-50.1); Immature Granulocytes % 1.8 % (0-4); Lymphocytes # 0.7 K/mcL (0.6-4.6); Lymphocytes % 20.2 %; Mean Corpuscular HGB Conc 32.1 g/dL (31.6-35.5); Mean Corpuscular Hemoglobin 34.7 pg (28.0-33.3); Mean Corpuscular Volume 108.2 fL (83.0-100.0); Mean Platelet Volume 11.8 fL (9.4-12.4); Monocytes # 0.7 K/mcL (0.0-1.3); Monocytes % 21.7 %; Nucleated Red Blood Cells 1.2 /100 WBC (0); Red Blood Count 2.19 M/mcL (4.19-5.50); Red Cell Distribution Width 19.9 % (11.5-14.5); White Blood Count 3.3 K/mcL (4.3-11.1)
[2022-05-20 03:50] LABS: INR 2.5; Neutrophils # 1.9 K/mcL (1.6-8.9); Platelet Count 24 K/mcL (140-400); Prothrombin Time 27.6 Seconds (9.4-12.1)
[2022-05-20 04:04] LABS: Alanine Aminotransferase 41 Units/L (7-52); Albumin 3.6 g/dL (3.5-5.7); Albumin/Globulin Ratio 2.3 (1.1-2.2); Alkaline Phosphatase 63 Units/L (34-104); Aspartate Amino Transferase 34 Units/L (13-39); BUN/Creatinine Ratio 30 (6-26); Bilirubin,Direct 1.8 mg/dL (0.0-0.2); Bilirubin,Indirect 2.4 mg/dL (0.0-1.0); Bilirubin,Total 4.2 mg/dL (0.3-1.0); Blood Urea Nitrogen 25 mg/dL (6-20); Calcium 8.3 mg/dL (8.6-10.3); Carbon Dioxide 21 mEq/L (23-29); Chloride 118 mEq/L (98-107); Globulin 1.6 g/dL (2.4-3.5); Glucose 236 mg/dL (70-105); Magnesium 1.7 mg/dL (1.6-2.6); Osmolality,Calculated 314 (280-300); Phosphorous 3.1 mg/dL (2.7-4.5); Potassium 3.8 mEq/L (3.5-5.1); Sodium 146 mEq/L (136-145); Total Protein 5.2 g/dL (6.4-8.9); eGFR For African Americans > 60 (> 60); eGFR For Non-African Americans > 60 (> 60)
[2022-05-20 04:05] LABS: Anisocytosis 2+ (Not Present); Platelet Estimate Marked Decrease (Normal)
[2022-05-20 04:06] LABS: Hypochromasia Present (Not Present)
[2022-05-20] MEDS: D5% in 0.9% NACL w KCl 20 MEQ/1,000 ML MLS IVC SCH (04:48)
[2022-05-20] MEDS: *HR* LORazepam 2 MG/ML VIAL IVP PRN (04:49)
[2022-05-20] MEDS: Pantoprazole 40 MG VIAL IVP SCH ×2 (05:02→17:14)
[2022-05-20] MEDS: Norepinephrine 4 MG/254 ML IV.SOLN IVC SCH (05:03)
[2022-05-20] MEDS: Dexmedetomidine HCl 400 MCG/100 ML MLS IVC SCH ×3 (05:54→22:52)
[2022-05-20] MEDS: Albumin 25% 25gram/100mL 25 GM/100 ML IV.SOLN IVPB SCH (07:23)
[2022-05-20] MEDS: Chlorhexidine Rinse 15 ML MOUTHWASH MM SCH ×2 (07:23→20:10)
[2022-05-20] MEDS: Piperacillin/Tazobactam 3.375 GM in 0.9 % Sodium Chloride Mini Bag 100 ML IVPB SCH ×3 (07:23→22:56)
[2022-05-20] MEDS: Dexamethasone Sodium Phos/PF 10 MG/ML VIAL IVP SCH (07:24)
[2022-05-20] MEDS: Insulin DETEMIR 100 UNIT/ML X5UNITS SUBQ SCH (07:28)
[2022-05-20] MEDS: Lactulose 200 GM, Sodium Chloride IRRigation 700 ML RC SCH (11:45)
[2022-05-20 12:08] LABS: Hematocrit 25.3 % (37.5-50.1); Hemoglobin 8.1 g/dL (12.9-16.9)
[2022-05-20] MEDS: QUEtiapine Fumarate 25 MG TABLET PO SCH (20:11)
[2022-05-21] MEDS: Insulin LISPRO 300 UNITS/3 ML VIAL SUBQ SCH ×6 (01:54→20:56)
[2022-05-21] MEDS: *HR* LORazepam 2 MG/ML VIAL IVP PRN ×2 (01:58→23:36)
[2022-05-21] MEDS: Pantoprazole 40 MG VIAL IVP SCH ×2 (05:09→17:31)
[2022-05-21] MEDS: Lactulose Oral Soln 20 GM/30 ML UDC PO SCH ×3 (05:09→17:31)
[2022-05-21] MEDS: Piperacillin/Tazobactam 3.375 GM in 0.9 % Sodium Chloride Mini Bag 100 ML IVPB SCH ×2 (08:27→17:30)
[2022-05-21] MEDS: Chlorhexidine Rinse 15 ML MOUTHWASH MM SCH (08:27)
[2022-05-21 09:05] LABS: Basophils % 0.2 %; Eosinophils % 0.3 %; Mean Corpuscular HGB Conc 31.9 g/dL (31.6-35.5); Monocytes % 12.6 %; Nucleated Red Blood Cells 0.5 /100 WBC (0)
[2022-05-21 09:07] LABS: Hematocrit 25.1 % (37.5-50.1); Immature Granulocytes % 2.2 % (0-4); Immature Platelets 19.5 % (1.1-6.1); Lymphocytes # 1.2 K/mcL (0.6-4.6); Lymphocytes % 19.9 %; Mean Corpuscular Hemoglobin 34.8 pg (28.0-33.3); Mean Corpuscular Volume 109.1 fL (83.0-100.0); Monocytes # 0.8 K/mcL (0.0-1.3); Neutrophils # 3.9 K/mcL (1.6-8.9); Red Cell Distribution Width 19.9 % (11.5-14.5); Segmented Neutrophils % 64.8 %
[2022-05-21 09:17] LABS: INR 2.6; Prothrombin Time 28.5 Seconds (9.4-12.1)
[2022-05-21 09:18] LABS: Platelet Count 23 K/mcL (140-400)
[2022-05-21 09:19] LABS: Platelet Estimate Marked Decrease (Normal)
[2022-05-21 09:26] LABS: Alanine Aminotransferase 53 Units/L (7-52); Albumin 3.5 g/dL (3.5-5.7); Albumin/Globulin Ratio 2.2 (1.1-2.2); Alkaline Phosphatase 67 Units/L (34-104); Aspartate Amino Transferase 47 Units/L (13-39); BUN/Creatinine Ratio 24 (6-26); Bilirubin,Direct 2.4 mg/dL (0.0-0.2); Bilirubin,Indirect 3.3 mg/dL (0.0-1.0); Bilirubin,Total 5.7 mg/dL (0.3-1.0); Blood Urea Nitrogen 17 mg/dL (6-20); Calcium 8.6 mg/dL (8.6-10.3); Carbon Dioxide 21 mEq/L (23-29); Chloride 114 mEq/L (98-107); Globulin 1.6 g/dL (2.4-3.5); Glucose 139 mg/dL (70-105); Magnesium 1.4 mg/dL (1.6-2.6); Osmolality,Calculated 298 (280-300); Phosphorous 2.6 mg/dL (2.7-4.5); Potassium 3.4 mEq/L (3.5-5.1); Sodium 142 mEq/L (136-145); Total Protein 5.1 g/dL (6.4-8.9); eGFR For African Americans > 60 (> 60); eGFR For Non-African Americans > 60 (> 60)
[2022-05-21] MEDS: Insulin DETEMIR 100 UNIT/ML X5UNITS SUBQ SCH (10:14)
[2022-05-21] MEDS: Dexmedetomidine HCl 400 MCG/100 ML MLS IVC SCH ×2 (11:45→17:16)
[2022-05-21] MEDS: QUEtiapine Fumarate 25 MG TABLET PO SCH (20:43)
[2022-05-22] MEDS: Piperacillin/Tazobactam 3.375 GM in 0.9 % Sodium Chloride Mini Bag 100 ML IVPB SCH ×2 (01:22→07:49)
[2022-05-22] MEDS: Lactulose Oral Soln 20 GM/30 ML UDC PO SCH ×4 (01:22→17:30)
[2022-05-22] MEDS: Dexmedetomidine HCl 400 MCG/100 ML MLS IVC SCH ×2 (01:25→08:00)
[2022-05-22] MEDS: Insulin LISPRO 300 UNITS/3 ML VIAL SUBQ SCH ×5 (04:15→20:06)
[2022-05-22] MEDS: *HR* LORazepam 2 MG/ML VIAL IVP PRN (05:50)
[2022-05-22] MEDS: Pantoprazole 40 MG VIAL IVP SCH (06:40)
[2022-05-22] MEDS: Spironolactone 25 MG TABLET PO SCH (07:48)
[2022-05-22] MEDS: Folic Acid 1 MG TABLET PO SCH (07:48)
[2022-05-22] MEDS: Thiamine (B-1) 100 MG TABLET PO SCH (07:48)
[2022-05-22] MEDS: Insulin DETEMIR 100 UNIT/ML X5UNITS SUBQ SCH (07:53)
[2022-05-22 13:13] LABS: Mean Corpuscular HGB Conc 32.4 g/dL (31.6-35.5); Nucleated Red Blood Cells 0.4 /100 WBC (0)
[2022-05-22 13:15] LABS: Basophils % 0.2 %; Eosinophils % 0.2 %; Hematocrit 29.3 % (37.5-50.1); Hemoglobin 9.5 g/dL (12.9-16.9); Immature Granulocytes % 2.4 % (0-4); Immature Platelets 27.6 % (1.1-6.1); Lymphocytes # 0.6 K/mcL (0.6-4.6); Lymphocytes % 10.4 %; Mean Corpuscular Hemoglobin 34.9 pg (28.0-33.3); Mean Corpuscular Volume 107.7 fL (83.0-100.0); Mean Platelet Volume 13.9 fL (9.4-12.4); Monocytes # 0.4 K/mcL (0.0-1.3); Monocytes % 6.9 %; Neutrophils # 4.3 K/mcL (1.6-8.9); Red Blood Count 2.72 M/mcL (4.19-5.50); Red Cell Distribution Width 19.5 % (11.5-14.5); Segmented Neutrophils % 79.9 %; White Blood Count 5.4 K/mcL (4.3-11.1)
[2022-05-22 13:18] LABS: VBG Ionized Calcium 1.19 mmol/L (1.15-1.35)
[2022-05-22 13:30] LABS: INR 2.5; Prothrombin Time 28.2 Seconds (9.4-12.1)
[2022-05-22 13:34] LABS: Alanine Aminotransferase 54 Units/L (7-52); Albumin 3.2 g/dL (3.5-5.7); Albumin/Globulin Ratio 1.7 (1.1-2.2); Alkaline Phosphatase 67 Units/L (34-104); Aspartate Amino Transferase 33 Units/L (13-39); BUN/Creatinine Ratio 22 (6-26); Bilirubin,Direct 2.8 mg/dL (0.0-0.2); Bilirubin,Indirect 3.9 mg/dL (0.0-1.0); Bilirubin,Total 6.7 mg/dL (0.3-1.0); Blood Urea Nitrogen 14 mg/dL (6-20); Calcium 8.6 mg/dL (8.6-10.3); Carbon Dioxide 22 mEq/L (23-29); Chloride 110 mEq/L (98-107); Globulin 1.9 g/dL (2.4-3.5); Glucose 195 mg/dL (70-105); Magnesium 1.1 mg/dL (1.6-2.6); Osmolality,Calculated 292 (280-300); Phosphorous 3.4 mg/dL (2.7-4.5); Potassium 3.8 mEq/L (3.5-5.1); Sodium 138 mEq/L (136-145); Total Protein 5.1 g/dL (6.4-8.9); eGFR For African Americans > 60 (> 60); eGFR For Non-African Americans > 60 (> 60)
[2022-05-22 13:47] LABS: Platelet Count 22 K/mcL (140-400)
[2022-05-22 13:51] LABS: Estimated Average Glucose 91 mg/dl; Hemoglobin A1C 4.8 %
[2022-05-22 14:48] LABS: Folate 12.8 ng/mL (3.0-16.0)
[2022-05-22 15:30] LABS: Vitamin B12 > 1500 pg/mL (250-1100)
[2022-05-22] MEDS ORDERED: Haloperidol Lactate 5 MG/ML VIAL IVP PRN (16:23)
[2022-05-22] MEDS: QUEtiapine Fumarate 25 MG TABLET PO SCH (20:05)
[2022-05-23] MEDS: Insulin LISPRO 300 UNITS/3 ML VIAL SUBQ SCH ×4 (00:56→12:38)
[2022-05-23] MEDS: Lactulose Oral Soln 20 GM/30 ML UDC PO SCH ×4 (00:57→16:53)
[2022-05-23 04:51] LABS: VBG Ionized Calcium 1.15 mmol/L (1.15-1.35)
[2022-05-23 05:05] LABS: Basophils % 0.2 %
[2022-05-23 05:19] LABS: Eosinophils % 0.1 %; Hematocrit 28.3 % (37.5-50.1); Hemoglobin 9.3 g/dL (12.9-16.9); Immature Granulocytes % 1.7 % (0-4); Lymphocytes # 1.2 K/mcL (0.6-4.6); Lymphocytes % 14.6 %; Mean Corpuscular HGB Conc 32.9 g/dL (31.6-35.5); Mean Corpuscular Hemoglobin 34.7 pg (28.0-33.3); Mean Corpuscular Volume 105.6 fL (83.0-100.0); Monocytes # 0.9 K/mcL (0.0-1.3); Nucleated Red Blood Cells 0.2 /100 WBC (0); Red Blood Count 2.68 M/mcL (4.19-5.50); Red Cell Distribution Width 19.2 % (11.5-14.5); Segmented Neutrophils % 72.4 %; White Blood Count 8.5 K/mcL (4.3-11.1)
[2022-05-23 05:44] LABS: INR 2.6; Prothrombin Time 29.3 Seconds (9.4-12.1)
[2022-05-23 06:40] LABS: Neutrophils # 6.2 K/mcL (1.6-8.9)
[2022-05-23 06:43] LABS: Alanine Aminotransferase 54 Units/L (7-52); Albumin 3.1 g/dL (3.5-5.7); Albumin/Globulin Ratio 1.7 (1.1-2.2); Alkaline Phosphatase 65 Units/L (34-104); Aspartate Amino Transferase 36 Units/L (13-39); BUN/Creatinine Ratio 20 (6-26); Bilirubin,Direct 2.7 mg/dL (0.0-0.2); Bilirubin,Total 6.7 mg/dL (0.3-1.0); Blood Urea Nitrogen 12 mg/dL (6-20); Calcium 8.6 mg/dL (8.6-10.3); Carbon Dioxide 20 mEq/L (23-29); Chloride 107 mEq/L (98-107); Globulin 1.8 g/dL (2.4-3.5); Glucose 125 mg/dL (70-105); Magnesium 0.9 mg/dL (1.6-2.6); Osmolality,Calculated 285 (280-300); Phosphorous 2.8 mg/dL (2.7-4.5); Potassium 3.4 mEq/L (3.5-5.1); Sodium 137 mEq/L (136-145); Total Protein 4.9 g/dL (6.4-8.9); eGFR For African Americans > 60 (> 60); eGFR For Non-African Americans > 60 (> 60)
[2022-05-23 06:49] LABS: Platelet Count 30 K/mcL (140-400)
[2022-05-23 07:15] LABS: Anisocytosis 2+ (Not Present); Macrocytosis Present (Not Present); Platelet Estimate Marked Decrease (Normal)
[2022-05-23] MEDS: Spironolactone 25 MG TABLET PO SCH (12:35)
[2022-05-23] MEDS: Folic Acid 1 MG TABLET PO SCH (12:35)
[2022-05-23] MEDS: Thiamine (B-1) 100 MG TABLET PO SCH (12:35)
[2022-05-23] MEDS: Insulin DETEMIR 100 UNIT/ML X5UNITS SUBQ SCH (12:35)
[2022-05-23] MEDS ORDERED: Iopamidol - 370 500 ML MLS IVP ONE (14:27)
[2022-05-23] MEDS: QUEtiapine Fumarate 25 MG TABLET PO SCH (20:40)
[2022-05-24] MEDS: Lactulose Oral Soln 20 GM/30 ML UDC PO SCH ×3 (00:01→11:35)
[2022-05-24 05:31] VITALS: TEMP 99.4
[2022-05-24 05:40] LABS: VBG Ionized Calcium 1.14 mmol/L (1.15-1.35)
[2022-05-24 05:43] LABS: Basophils % 0.2 %; Eosinophils % 0.3 %; Hematocrit 25.7 % (37.5-50.1); Hemoglobin 8.3 g/dL (12.9-16.9); Immature Granulocytes % 0.9 % (0-4); Lymphocytes # 2.2 K/mcL (0.6-4.6); Mean Corpuscular HGB Conc 32.3 g/dL (31.6-35.5); Mean Corpuscular Volume 108.4 fL (83.0-100.0); Mean Platelet Volume 14.2 fL (9.4-12.4); Monocytes # 1.3 K/mcL (0.0-1.3); Monocytes % 13.4 %; Neutrophils # 6.3 K/mcL (1.6-8.9); Nucleated Red Blood Cells 0.3 /100 WBC (0); Platelet Count 36 K/mcL (140-400); Red Blood Count 2.37 M/mcL (4.19-5.50); Segmented Neutrophils % 63.2 %
[2022-05-24 05:55] LABS: INR 2.9; Prothrombin Time 32.5 Seconds (9.4-12.1)
[2022-05-24 06:02] LABS: Alanine Aminotransferase 79 Units/L (7-52); Albumin/Globulin Ratio 1.9 (1.1-2.2); Alkaline Phosphatase 104 Units/L (34-104); Aspartate Amino Transferase 57 Units/L (13-39); BUN/Creatinine Ratio 18 (6-26); Bilirubin,Direct 2.5 mg/dL (0.0-0.2); Bilirubin,Indirect 3.6 mg/dL (0.0-1.0); Bilirubin,Total 6.1 mg/dL (0.3-1.0); Blood Urea Nitrogen 14 mg/dL (6-20); Calcium 8.4 mg/dL (8.6-10.3); Carbon Dioxide 22 mEq/L (23-29); Chloride 109 mEq/L (98-107); Globulin 1.6 g/dL (2.4-3.5); Glucose 136 mg/dL (70-105); Magnesium 1.2 mg/dL (1.6-2.6); Osmolality,Calculated 285 (280-300); Phosphorous 2.2 mg/dL (2.7-4.5); Potassium 3.6 mEq/L (3.5-5.1); Sodium 136 mEq/L (136-145); Total Protein 4.6 g/dL (6.4-8.9); eGFR For African Americans > 60 (> 60); eGFR For Non-African Americans > 60 (> 60)
[2022-05-24] MEDS: Thiamine (B-1) 100 MG TABLET PO SCH (07:58)
[2022-05-24] MEDS: Folic Acid 1 MG TABLET PO SCH (07:58)
[2022-05-24 11:34] VITALS: BP 131/55; PULSE 69; O2SAT 97
[2022-05-27] MEDS ORDERED: Iopamidol - 370 500 ML MLS IVP ONE (10:58)
== END 2022-05-24 13:08 | disposition hospice, home (50) | DRG 720 ==
LOC: SUATTDRO 21:38 → ICNU 21:38 → 2NENU 05-21 01:44
PROVIDERS: ADMIT Internal Medicine; ATTEND Internal Medicine